=== PATIENT | female | born 1990 | race Caucasian/White ===

== ENCOUNTER → 2022-06-17 | Day surgery (SDC) | payer MEDICAID ==
[~2022-06-17] VITALS: Ht 167.6 cm; Wt 68.5 kg
[~2022-06-17] MED LIST: ACETAMINOPHEN 325MG TABLET PO PRN; BALANCED SALT IRRIG SOLN 15ML ONE; BUPIVACAINE HCL/PF 0.75% (7.5MG/ML) 10ML ONE; CIPROFLOXACIN 0.3% OPHTH SOLN 2.5ML LEFTEYE ONE; FENTANYL CITRATE/PF 50MCG/ML 2ML VIAL ONE; LACTATED RINGERS 1,000 ML IV SCH; LIDOCAINE HCL 2%/EPINEPHRINE 1:100,000 20 ML VIAL INFIL ONE; METHYLPREDNISOLONE SOD SUCC 40 MG/ML VIAL ONE; MIDAZOLAM HCL 5 MG/5 ML VIAL ONE; NEO/POLYMYX B SULF/DEXAMETH OPHTH OINT 3.5GM ONE; PROPOFOL 200MG/20ML VIAL IV ONE; TETRACAINE 0.5% OPHTH DROPS 4ML ONE; TOBRAMYCIN SULFATE 40MG/ML 2ML ONE
[2022-06-17 08:11] LABS: UCG SCREEN NEGATIVE
== END | disposition home or self-care (01) ==
LOC: OR 07:09
PROVIDERS: ATTEND Ophthalmology
DX: H11.002 Unspecified pterygium of left eye (principal); Z79.899 Other long term (current) drug therapy; Z98.890 Other specified postprocedural states; Z20.822 Contact with and (suspected) exposure to COVID-19
CPT/HCPCS: 65420; 81025; 87426; 88304; C9803; J2250; J2704; J2920; J3010; J3260; J3490